=== PATIENT | female | born 1960 | race Hispanic/Latino ===

== ENCOUNTER 2016-11-24 21:55 | Emergency (ER) | payer MEDICAID, OTHER ==
[~2016-11-24] VITALS: Ht 162.6 cm; Wt 74.0 kg
[2016-11-24 22:14] VITALS: BP 136/77; PULSE 95; RESP 20; O2SAT 98
--- NOTE | 2016-11-24 22:29 | ED.REPORT ---
HPI-General Illness Date of Service November 24, 2016 ED Provider: Dev Sheridan MD Patient is a 56 year old female who presents to the ED complaining of neck pain onset yesterday morning upon waking. Her pain is sharp, radiates to the back of her head and has gotten worse. She denies any mechanism of injury but reports that she does heavy lifting at work. She denies chest pain, SOB, fever, chills, numbness, weakness, or any other symptoms. Nursing Notes Stated Complaint: BACK, NECK, LEFT SHOULDER PAIN Chief Complaint: General Complaint Nursing Notes Reviewed: Yes Allergies: Coded Allergies: No Known Allergies (Unverified , 11/24/16) Scheduled PRN Cyclobenzaprine (Cyclobenzaprine) 5 Mg Tablet 5 MG PO HS PRN PRN Spasm General Time Seen by MD: 22:29 Chief Complaint Other (Neck pain) Hx Obtained From: Patient, Daughter Arrived By: Walk-in Sudden in Onset?: Yes Onset Occurred: Yesterday Symptom Duration: Since onset Past Medical History Past Medical History Healthy Past Surgical History Unknown Social History Other Social History: Good social support Ambulatory Status Independent Review of Systems Full Review of Systems Constitutional: Denies: Chills, Fever Respiratory: Denies: Shortness of breath Cardiovascular: Denies: Chest pain Musculoskeletal: Reports: Neck pain Neurologic: Denies: Numbness, Weakness Complete sys rev & neg: except as marked. Physical Exam Vital Signs Vital Signs Date Time Temp Pulse Resp B/P Pulse Ox O2 Delivery O2 Flow Rate FiO2 11/24/16 22:14 36.2 95 20 136/77 98 Initial VS: Reviewed Head / Eyes: Atraumatic, Normocephalic Respiratory: Breath sounds normal, Clear to auscultation, No respiratory distress Cardiovascular: Regular rate & rhythm, Heart sounds normal, Intact distal pulses Abdomen / GI: Soft, Non-tender, No distention Skin: Warm, Dry Psychiatric: Mood/affect normal, Behavior normal, Normal thought content General/Constitutional: Awake, Alert, Well developed Grasping L side of neck and shoulder Neck: No midline vertebral tend No step off diffuse tender L trapezius muscle with spasm Neurologic: Oriented X3, 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 Examination reveals no midline cervical tenderness and she has had no acute traumatic injuries. She has diffuse tenderness about her left trapezius muscle and obvious spasm of her left trapezius muscle. Here in the emergency department she was treated with 30 mg of intramuscular Toradol as well as 5 mg of cyclobenzaprine. An ice pack was applied. She had significant resolution of her symptoms. Forehead toe survey revealed no evidence of other associated injuries. She is neurovascularly intact in all 4 extremities. She has no meningismus or evidence of meningitis. There is no swelling of the neck or evidence of soft tissue infection, abscess or cellulitis. The patient is advised to apply ice packs, stretch, take ibuprofen and use Flexeril for breakthrough symptoms. She will follow up closely with her primary care physician. I feel that she is appropriate for discharge home. Prior to discharge follow-up and return precautions were reviewed in detail with the patient who verbalized understanding and agreement with the plan. The patient was discharged in stable condition. Time of Eval: 22:53 Re-Evaluation/Progress Note: Discussed plan for discharge. Patient understands and agrees with plan. All questions addressed at this time. Counseled Regarding: Diagnosis, Need for follow-up, When/why to return to ED Discharge & Departure Primary Impression: Neck muscle spasm Additional Impression: Trapezius muscle spasm Disposition: Home Discharge Condition All VS Reviewed: Yes Condition: Improved Additional Instructions: Thank you for seeking care at the emergency room. It is difficult for us to make definitive diagnoses in the ED but we believe that you are experiencing a neck spasm. Our primary goal today in the ED was to evaluate you for any life-threatening conditions. Your evaluation was reassuring. You will be discharged with a prescription for Flexeril. Only take Flexeril at night as it will make you drowsy. Take 600 mg of Ibuprofen 3 times a day for 7 days with food and water. Apply ice to your neck for 20 minutes at a time. You should follow-up with your primary doctor in the next week. You should return to the ED immediately if you develop fevers, vomiting, headache, chest pain, lightheadedness, numbness, weakness or any other concerning signs or symptoms. Thank you for letting us partake in your care today. Referrals: Liliana Henderson MD (PCP) Scribe Attestation Portions of this note were transcribed by Nica Brian. I, Dr. Sheridan personally performed the history, physical exam and medical decision-making; I reviewed and confirmed the accuracy of the information in the transcribed note. Signed by: Nica Brian 11/24/2016, 0521 copies to: Liliana Henderson MD, Beck O MD November 24, 2016 22:29 NICA BRIAN November 24, 2016 22:46
[2016-11-24] MEDS ORDERED: CYCL5TAB PO (22:49)
[2016-11-24 23:42] VITALS: BP 133/76; PULSE 88; RESP 14; O2SAT 99
== END 2016-11-24 23:43 | disposition home or self-care (01) ==
LOC: SED 21:55
DX: M62.838 Other muscle spasm (principal)
CPT/HCPCS: 96372; 99283; J1885